=== PATIENT | female | born 1975 | race Caucasian/White ===

== ENCOUNTER → 2019-05-16 | Outpatient (CLI) | payer OTHER ==
--- NOTE | 2019-05-16 10:32 | US ---
EXAMINATION TYPE: US abdomen complete DATE OF EXAM: 05/16/2019 COMPARISON: NONE CLINICAL HISTORY: R10.11 Right upper quadrant pain. Pt states ABD pain EXAM MEASUREMENTS: Liver Length: 15.1 cm Gallbladder Wall: 0.7 cm CBD: 0.8 cm Spleen: 9.6 cm Right Kidney: 10.3 x 5.5 x 4.7 cm Left Kidney: 10.2 x 5.0 x 4.5 cm Pancreas: Obscured by bowel gas Liver: wnl Gallbladder: Non-mobile stone within neck= 2.0 cm, sludge filling lumen, wall thickened Evidence for sonographic Cabrera's sign: Yes CBD: dilated Spleen: wnl Right Kidney: wnl Left Kidney: wnl Upper IVC: wnl Abd Aorta: wnl The liver is homogenous. The intrahepatic portion of the IVC and proximal abdominal aorta are within normal limits. Common bile duct is unremarkable. The pancreas is obscured by bowel gas. The spleen is unremarkable. Kidneys are symmetric and free of hydronephrosis. No renal lesions are seen. IMPRESSION: Findings are concerning for acute cholecystitis with gallbladder wall thickening, gallsto ne measuring 2 cm at the gallbladder neck, and dilated common bile duct as well as gallbladder wall t hickening and positive sonographic Cabrera sign. Surgical evaluation is recommended. A [place] level critical message alert has been initiated for Chuy Whiting MD via the [employer] Critical Results System on 05/16/2019 10:30 AM. This message alert has been sent to Chuy pringle MD via the preferences provided by the clinician for the receipt of Radiology Critical Findings. Message ID [id number].
== END | disposition home or self-care (01) ==
LOC: RADUSWWP 09:24
PROVIDERS: ATTEND Internal Medicine
DX: K80.20 Calculus of gallbladder without cholecystitis without obstruction (principal); K83.8 Other specified diseases of biliary tract; Z88.1 Allergy status to other antibiotic agents; Z88.2 Allergy status to sulfonamides; Z91.048 Other nonmedicinal substance allergy status
CPT/HCPCS: 76700

== ENCOUNTER 2019-06-01 09:55 | Day surgery (SDC) | payer OTHER ==
[2019-05-31 08:32] VITALS: BMI 27.2
[~2019-06-01 09:55] MED LIST: HEPARIN SODIUM,PORCINE 5,000 UNIT/ML 1 ML VIAL SQ ONE; LACTATED RINGERS 1,000 ML IV SCH; LIDOCAINE 1% 20 ML VIAL (10MG/ML) FOR IV START INTRADERMA PRN; ONDANSETRON 4 MG/2 ML VIAL IVP ONE
[2019-06-01] MEDS ORDERED: ROCURONIUM BROMIDE 10 MG/ML 5 ML VIAL IV ONE (11:29)
[2019-06-01] MEDS ORDERED: LIDOCAINE 1% INJ 10MG/ML (20 ML MDV) ONE (11:29)
[2019-06-01] MEDS ORDERED: GLYCOPYRROLATE 0.2 MG/ML 2 ML VIAL ONE (11:29)
[2019-06-01] MEDS ORDERED: fentaNYL (PF) 50 MCG/ML 2 ML AMP ONE (11:29)
[2019-06-01] MEDS ORDERED: PROPOFOL 10 MG/ML 20 ML VIAL IV ONE (11:29)
[2019-06-01] MEDS ORDERED: HYDROmorphone (PF) 1 MG/ML ONE (11:29)
[2019-06-01] MEDS ORDERED: KETOROLAC 30 MG/ML 1 ML VIAL ONE (11:29)
[2019-06-01] MEDS ORDERED: INDOCYANINE GREEN 25 MG VIAL IV ONE ×4 (11:29→11:36)
[2019-06-01] MEDS ORDERED: SUCCINYLCHOLINE CHLORIDE 100 MG/5 ML SYR IV ONE (11:29)
[2019-06-01] MEDS ORDERED: MIDAZOLAM 2 MG/2 ML VIAL ONE (11:29)
[2019-06-01] MEDS ORDERED: WATER FOR INJECTION, STERILE 10 ML VIAL IV ONE (11:29)
[2019-06-01] MEDS ORDERED: NEOSTIGMINE 1 MG/ML 10 ML VIAL ONE (11:29)
[2019-06-01] MEDS ORDERED: BUPIVACAIN-EPI 0.5%-1:200,000 30 ML VIAL SQ ONE ×2 (11:54)
[2019-06-01] MEDS ORDERED: LACTATED RINGERS 1,000 ML IV ONE (12:24)
--- NOTE | 2019-06-01 13:04 | P.OP ---
Date of Procedure: 06/01/19 Preoperative Diagnosis: Symptomatic cholelithiasis Postoperative Diagnosis: Symptomatic cholelithiasis Procedure(s) Performed: Laparoscopic cholecystectomy Anesthesia: NIIVA Surgeon: Julio Chahal Pathology: other (Gallbladder and contents) Condition: stable Disposition: same day Indications for Procedure: 43-year-old female presented initially to the surgical clinic with complaints of right upper quadrant pain. She had had recent workup with an ultrasound of the gallbladder that did show cholelithiasis, gallbladder wall thickening and concern for cholecystitis. Secondary to this, plan was made for a robotic cholecystectomy. Risks, benefits and alternatives were provided to the patient. She did provide consent prior to attending the operating suite. Operative Findings: Thickened gallbladder with surrounding adhesions Cholelithiasis Description of Procedure: The patient was brought into the operating suite and placed in supine position on the operating table. Sedation was provided by anesthesia and the patient underwent endotracheal intubation. The patient was then prepped and draped in regular sterile fashion. An infraumbilical incision was made dissection was carried to the fascia. The fascia was incised and the abdomen was entered with a 8 mm robotic trocar. Pneumoperitoneum was established. 2 additional 8 mm trochars were placed in the right lower quadrant and one was placed in the left side of the abdomen. The robot was then docked. The patient was placed in appropriate position. The gallbladder was grasped and elevated and was noted to have a significant amount of gallstones. The gallbladder was noted to be thickened and had dense adhesions surrounding it. These were peeled off and dissection was carried towards the cystic duct. The cystic duct was confirmed using ICG technology. The duct was skeletonized, 2 clips were placed proximally and one was placed distally and the cystic duct was ligated. Dissection was also carried to skeletonize the visible cystic artery. 2 clips were placed proximally one was placed distally and the cystic artery was ligated. The gallbladder was then dissected from the gallbladder fossa using cautery. The gallbladder was then placed in an Endo Catch bag. The robot was undocked. The Endo Catch bag was removed from the abdomen from the infra umbilical incision port. Hemostasis was noted to be maintained in the right upper quadrant. The infraumbilical incision port site was closed under direct visualization using a Rodrigue-Cristiana device. This was done with an 0 Vicryl suture. All skin incisions were then closed with 4-0 Vicryl subcuticular suture. The patient was awakened in the operating suite and taken to postanesthesia care unit in stable condition.
[2019-06-01] MEDS ORDERED: ACETAMINOPHEN IV (For NPO) 1,000 MG/100 ML VIAL IVPB ONE (13:10)
[2019-06-01 13:13] VITALS: TEMP 97.2
[2019-06-01] MEDS ORDERED: diphenhydrAMINE 50 MG/ML 1 ML VIAL IVP ONE (13:15)
[2019-06-01] MEDS: HYDROmorphone 1 MG/ML 1 ML SYRINGE IVP ONE ×2 (13:31→13:37)
[2019-06-01 14:56] VITALS: BP 124/72; PULSE 68; RESP 20
== END 2019-06-01 14:56 | disposition home or self-care (01) ==
LOC: OR 09:55
PROVIDERS: ATTEND Surgery
DX: K80.12 Calculus of gallbladder with acute and chronic cholecystitis without obstruction (principal); K66.0 Peritoneal adhesions (postprocedural) (postinfection); F32.9 Major depressive disorder, single episode, unspecified; K21.9 Gastro-esophageal reflux disease without esophagitis; F17.210 Nicotine dependence, cigarettes, uncomplicated; F41.9 Anxiety disorder, unspecified; Z82.69 Family history of other diseases of the musculoskeletal system and connective tissue; Z80.8 Family history of malignant neoplasm of other organs or systems; Z88.2 Allergy status to sulfonamides; Z91.048 Other nonmedicinal substance allergy status; Z88.1 Allergy status to other antibiotic agents; Z98.890 Other specified postprocedural states; Z79.899 Other long term (current) drug therapy
CPT/HCPCS: 47562; S2900; 84703; 88304